=== PATIENT | female | born 1955 | race Caucasian/White ===

== ENCOUNTER → 2022-07-27 10:38 | Outpatient (BNVA) | payer MEDICARE, SELFPAY | PROVIDERS: PCP Nurse Practitioner; Visit Provider Family Medicine | DX: Z00.00 Encounter for general adult medical examination without abnormal findings (principal); G43.009 Migraine without aura, not intractable, without status migrainosus; G82.50 Quadriplegia, unspecified; G89.29 Other chronic pain; Z79.899 Other long term (current) drug therapy | CPT/HCPCS: 80053; 80061; 85025 ==

== ENCOUNTER → 2023-02-17 15:21 | Outpatient (BNVA) | payer MEDICARE, SELFPAY | PROVIDERS: PCP Family Medicine; Visit Provider Nurse Practitioner | DX: Z12.72 Encounter for screening for malignant neoplasm of vagina (principal); N89.8 Other specified noninflammatory disorders of vagina | CPT/HCPCS: 87070; 87205; 88175 ==

== ENCOUNTER → 2023-10-06 09:13 | Outpatient (BNVA) | payer MEDICARE, SELFPAY | PROVIDERS: PCP Family Medicine; Visit Provider Family Medicine | DX: Z00.00 Encounter for general adult medical examination without abnormal findings (principal); E55.9 Vitamin D deficiency, unspecified; G82.50 Quadriplegia, unspecified; G89.29 Other chronic pain; E03.9 Hypothyroidism, unspecified; Z13.6 Encounter for screening for cardiovascular disorders; N39.0 Urinary tract infection, site not specified | CPT/HCPCS: 80053; 80061; 81000; 82607; 82652; 84443; 85025; 87077; 87086; 87184 ==

== ENCOUNTER → 2023-10-19 08:54 | Outpatient (BNVA) | payer MEDICARE, SELFPAY | PROVIDERS: PCP Family Medicine; Visit Provider Family Medicine | DX: E87.8 Other disorders of electrolyte and fluid balance, not elsewhere classified (principal); N39.0 Urinary tract infection, site not specified; E03.9 Hypothyroidism, unspecified; Z00.00 Encounter for general adult medical examination without abnormal findings | CPT/HCPCS: 80053; 81000; 84443 ==

== ENCOUNTER → 2023-10-24 15:36 | Outpatient (BNVA) | payer MEDICARE, SELFPAY | PROVIDERS: PCP Family Medicine; Visit Provider Family Medicine | DX: N89.8 Other specified noninflammatory disorders of vagina (principal); N39.0 Urinary tract infection, site not specified | CPT/HCPCS: 87070; 87077; 87184; 87205 ==

== ENCOUNTER → 2024-03-06 08:47 | Outpatient (BNVA) | payer MEDICARE, SELFPAY | PROVIDERS: PCP Family Medicine; Visit Provider Family Medicine | DX: N89.8 Other specified noninflammatory disorders of vagina (principal) | CPT/HCPCS: 87070; 87077; 87184; 87205 ==

== ENCOUNTER → 2024-05-22 10:04 | Outpatient (BNVA) | payer MEDICARE, SELFPAY | PROVIDERS: PCP Family Medicine; Visit Provider Family Medicine | DX: N89.8 Other specified noninflammatory disorders of vagina (principal); N76.0 Acute vaginitis; B96.89 Other specified bacterial agents as the cause of diseases classified elsewhere | CPT/HCPCS: 87070 ==

== ENCOUNTER → 2024-08-14 10:09 | Outpatient (BNVA) | payer MEDICARE, SELFPAY | PROVIDERS: PCP Family Medicine; Visit Provider Nurse Practitioner Women's Health | DX: Z90.711 Acquired absence of uterus with remaining cervical stump (principal); N92.6 Irregular menstruation, unspecified; N89.8 Other specified noninflammatory disorders of vagina; N93.9 Abnormal uterine and vaginal bleeding, unspecified; N32.9 Bladder disorder, unspecified | CPT/HCPCS: 76830 ==

== ENCOUNTER 2024-08-22 10:42 | Outpatient (CLI) | payer MEDICARE, SELFPAY ==
--- NOTE | 2024-08-22 11:00 | CT_ITS ---
WS: [id number] CT PELVIS NONCONTRAST HISTORY: pelvic mass possible on transvag u/s TECHNIQUE: Contiguous imaging is performed of the pelvis without contrast. Coronal and sagittal refor mats are reviewed. All CT scans at [facility] use at least one of these dose optimization jv hniques: automated exposure control; mA and/or kV adjustment per patient size (includes targeted exam s where dose is matched to clinical indication); or iterative reconstruction. DLP: 192.61 mGy.cm COMPARISON: Pelvic ultrasound 08/14/2024 Urinary bladder is minimally distended. Other than the urinary bladder there is no pelvic mass identi fied in the pelvis. Uterus is absent. No free fluid and no ascites. Urinary bladder is only partially distended but there is no displacement or additional mass. Low-attenuation mass lower pole RIGHT kidney is incompletely imaged. May be a small complex cyst. No adenopathy or ascites. No GI tract obstruction. Severe osteopenia. CT/CT pelvis w con* [id number] IMPRESSION: 1. Minimally distended urinary bladder. There is no mass adjacent to the urina ry bladder. No abnormality noted within the pelvis by CT to correspond to the p elvic ultrasound findings.
[2024-08-22 12:08] LABS: Blood Urea Nitrogen 5 mg/dL (8-23); Glomerular Filtration Rate 221.2 mL/min (90-130)
[2024-08-22] MEDS: iohexol 350 mg/mL 500 mL Btl (per mL) IV (12:23)
== END 2024-08-22 10:43 | disposition home or self-care (01) ==
LOC: RAD 10:43
PROVIDERS: Radiology Neuroradiology; PCP Family Medicine; Visit Provider Family Medicine
DX: R19.00 Intra-abdominal and pelvic swelling, mass and lump, unspecified site (principal); N28.89 Other specified disorders of kidney and ureter; M85.80 Other specified disorders of bone density and structure, unspecified site
CPT/HCPCS: 72193; 82565; 84520

== ENCOUNTER → 2024-10-30 11:37 | Outpatient (BNVA) | payer MEDICARE, SELFPAY | PROVIDERS: PCP Family Medicine; Visit Provider Family Medicine | DX: E55.9 Vitamin D deficiency, unspecified (principal); G82.50 Quadriplegia, unspecified; Z00.00 Encounter for general adult medical examination without abnormal findings; N89.8 Other specified noninflammatory disorders of vagina; E78.5 Hyperlipidemia, unspecified; E03.9 Hypothyroidism, unspecified | CPT/HCPCS: 80053; 80061; 82607; 82652; 84443; 85025 ==

== ENCOUNTER → 2025-10-22 13:12 | Outpatient (BNVA) | payer MEDICARE, SELFPAY | PROVIDERS: PCP Family Medicine; Visit Provider Family Medicine | DX: E55.9 Vitamin D deficiency, unspecified (principal); G82.50 Quadriplegia, unspecified; G89.29 Other chronic pain; E03.9 Hypothyroidism, unspecified | CPT/HCPCS: 80053; 80061; 82306; 82607; 84443; 85025 ==